=== PATIENT | female | born 1945 | race Caucasian/White ===

== ENCOUNTER 2017-01-03 05:58 | Day surgery (SDC) | payer MEDICARE ==
[2017-01-03] MEDS ORDERED: SODIUM CHLORIDE 0.9% 500 ML IV SCH (06:00)
[2017-01-03] MEDS ORDERED: PROPARACAINE HCL 0.5% 300 GTTS/BOT SOLN.DROP OS ONE (06:00)
[2017-01-03] MEDS ORDERED: NEO/POLYMYX B SULF/DEXAMETH OP OINT 14 APPLIC/3.5 G TUBE OS ONE (06:00)
[2017-01-03] MEDS ORDERED: EPINEPHRINE 0.5 MG in BALANCED SALT IRRIG SOLN NO.2 500 ML IO ONE (06:00)
[2017-01-03] MEDS ORDERED: CHONDR SULF 4%/HYALURONATE 3% 0.5 ML SYRINGE IO ONE (06:00)
[2017-01-03] MEDS ORDERED: PHENYLEPHRINE HCL 10% 100 GTTS/5 ML BOT SOLN.DROP OS PRN (06:00)
[2017-01-03] MEDS ORDERED: SODIUM CHLORIDE 0.9% 500 ML ONE (06:06)
[2017-01-03] MEDS ORDERED: IV START KIT ONE (06:07)
[2017-01-03] MEDS: CYCLOPENTOLATE HCL 1% 40 GTTS/2 ML BOT SOLN.DROP OS SCH ×2 (06:28→06:37)
[2017-01-03] MEDS: FLURBIPROFEN SODIUM 0.03% 50 GTTS/2.5 ML BOT SOLN.DROP OS SCH ×2 (06:28→06:38)
[2017-01-03] MEDS: PHENYLEPHRINE 2.5% OPHTH 40 GTTS/2 ML BOT SOLN.DROP OS SCH ×2 (06:28→06:38)
[2017-01-03] MEDS ORDERED: MIDAZOLAM HCL 1 MG/ML 2ML VIAL ONE (06:46)
--- NOTE | 2017-01-04 09:49 | OP ---
Marnie York [id number] DATE OF PROCEDURE: 01/03/2017 PREOPERATIVE DIAGNOSIS: Cataract OS. POSTOPERATIVE DIAGNOSIS: Pseudophakia OS. PROCEDURE: PHACOEMULSIFICATION AND POSTERIOR CHAMBER INTRAOCULAR LENS OS. ANESTHESIA: Monitored anesthesia care (MAC) with topical. SURGEON: Girma Jaimes M.D. COMPLICATIONS: None. DESCRIPTION OF PROCEDURE: After informed consent was obtained the patient was brought back to the operating room and laid in the supine position. Cardiac monitors and intravenous access were obtained by nursing and the patient underwent intravenous sedation without complication. Once adequate sedation was in place the patient was prepped and draped in the usual sterile fashion and a lid speculum was placed in the left eye. Attention was directed to the limbus at 6 o'clock where a side port was created using a 15 degree blade. Upon entering the anterior chamber non-preserved lidocaine was placed anterior chamber followed by reinflating the anterior chamber with Viscoelastic. A clear corneal incision was then created on the three o'clock limbus using a grooved blade followed by a 2.4 mm keratome blade. Upon entering the anterior chamber a curvilinear capsulorrhexis was initiated and completed with the Utrata forceps. Balanced salt solution (BSS) was used to hydrodissect the cataract and the cataract was removed with a phacoemulsification unit in a phaco-chop technique. The remaining cortical remnants were removed with the irrigation and aspiration unit. The anterior chamber and capsular bag were reinflated with Viscoelastic. An intraocular lens SN60WF, 18.0 diopter lens was removed from packaging and found to be without defect. This was placed into the injector and injected into the capsular bag without difficulty. The posterior haptic was rotated into position using a Kuglen hook. The lens was noted to be well centered in the bag. The remaining viscoelastic was then removed with the irrigation and aspiration unit. Balanced salt solution (BSS) was used to reinflate the anterior chamber. The wounds were inspected and found to be watertight. The patient had Maxitrol ointment placed in the eye. The patient had the lid speculum removed, and a shield placed and left the operating room in good condition and there were no complications. JOB: [id number]
== END 2017-01-03 08:15 | disposition home or self-care (01) ==
LOC: SDC 05:58
PROVIDERS: ATTEND Ophthalmology
PROC: 08RK3JZ Replacement of Left Lens with Synthetic Substitute, Percutaneous Approach (ICD-10-PCS; principal; 2017-01-03)
DX: H26.9 Unspecified cataract (principal); I10 Essential (primary) hypertension
CPT/HCPCS: 66984; J2250; J7040; J0171; V2630

== ENCOUNTER 2017-01-31 08:04 | Day surgery (SDC) | payer MEDICARE ==
[~2017-01-31 08:04] MED LIST: CHONDR SULF 4%/HYALURONATE 3% 0.5 ML SYRINGE IO ONE; EPINEPHRINE 0.5 MG in BALANCED SALT IRRIG SOLN NO.2 500 ML IO ONE; LIDOCAINE 4% (PRES FREE) 1 ML, BALANCED SALT IRRIG SOLN COMB2 3 ML, EPINEPHRINE 1.25 MG IO ONE; NEO/POLYMYX B SULF/DEXAMETH OP OINT 14 APPLIC/3.5 G TUBE OD ONE; PHENYLEPHRINE HCL 10% 100 GTTS/5 ML BOT SOLN.DROP OD PRN; PROPARACAINE HCL 0.5% 300 GTTS/BOT SOLN.DROP OD ONE; SODIUM CHLORIDE 0.9% 500 ML IV SCH
[2017-01-31] MEDS ORDERED: IV START KIT ONE (09:01)
[2017-01-31] MEDS ORDERED: MIDAZOLAM HCL 1 MG/ML 2ML VIAL ONE (09:18)
[2017-01-31] MEDS: FLURBIPROFEN SODIUM 0.03% 50 GTTS/2.5 ML BOT SOLN.DROP OD SCH ×2 (09:26→09:33)
[2017-01-31] MEDS: CYCLOPENTOLATE HCL 1% 40 GTTS/2 ML BOT SOLN.DROP OD SCH ×2 (09:27→09:32)
[2017-01-31] MEDS: PHENYLEPHRINE 2.5% OPHTH 40 GTTS/2 ML BOT SOLN.DROP OD SCH ×2 (09:27→09:31)
[2017-01-31] MEDS ORDERED: POVIDONE-IODINE 5% OPHTH SOLN 600 GTTS/BOT SOLN.DROP ONE (09:47)
--- NOTE | 2017-02-01 09:22 | OP ---
ELIZABETH PASCUAL [id number] DATE OF PROCEDURE: 01/31/2017 PREOPERATIVE DIAGNOSIS: Cataract OD. POSTOPERATIVE DIAGNOSIS: Pseudophakia OD. PROCEDURE: PHACOEMULSIFICATION AND POSTERIOR CHAMBER INTRAOCULAR LENS OD. SURGEON: Dr. Girma Jaimes ANESTHESIA: MAC with topical. COMPLICATIONS: None. DESCRIPTION OF PROCEDURE: After informed consent was obtained, the patient was brought back to the operating room and laid in supine position. Cardiac monitors and IV access were obtained by anesthesia. The patient underwent IV sedation without complication. Once adequate sedation was in place, the patient was prepped and draped in the usual sterile fashion and a lid speculum was placed in the right eye. Attention was directed to the limbus at 12 o'clock where a side port was created using a 15-degree blade. On entry in the anterior chamber, nonpreserved lidocaine was placed intracamerally, followed by reinflating the anterior chamber with viscoelastic. A corneal incision was then created at the limbus at 9 o'clock using a crescent blade, followed by a 2.4 mm Keratome blade. Upon entering the anterior chamber, a curvilinear capsulorrhexis was initiated and completed with Utrata forceps. A balanced salt solution (BSS) was used to hydrodissect the cataract and the cataract was removed with the phacoemulsification unit and a phaco-chop technique. The remaining cortical remnants were removed with the irrigation and aspiration unit. After the cortical remnants were removed, the anterior chamber and capsular bag were reinflated with Viscoelastic. The intraocular lens and SN60WF, 19.0 diopter lens was removed from packaging and found to be without defect. This was placed into the injector and was injected into the capsular bag without difficulty. The posterior haptic was rotated into position using a Kuglen hook. The lens was noted to be well-centered in the bag. The remaining viscoelastic was removed with the irrigation and aspiration unit. The anterior chamber was refilled, and balanced salt solution (BSS) was used to refill the anterior chamber. The wounds were inspected and were found to be watertight. Maxitrol ointment was placed in the eye. The patient had a shield placed and left the operating room in good condition. There were no complications.
== END 2017-01-31 10:30 | disposition home or self-care (01) ==
LOC: SDC 08:04
PROVIDERS: ATTEND Ophthalmology
PROC: 08RJ3JZ Replacement of Right Lens with Synthetic Substitute, Percutaneous Approach (ICD-10-PCS; principal; 2017-01-31)
DX: H26.9 Unspecified cataract (principal); I10 Essential (primary) hypertension; Z98.42 Cataract extraction status, left eye; Z96.1 Presence of intraocular lens; Z90.10 Acquired absence of unspecified breast and nipple
CPT/HCPCS: 66984; J2250; J0171 ×2; V2630